=== PATIENT | male | born 1965 | race African-American/Black ===

== ENCOUNTER 2016-07-28 17:05 | Emergency (ER) | payer OTHER, BC ==
[2016-07-28 17:10] VITALS: BP 145/89; PULSE 64; TEMP 98; BMI 30.4
[2016-07-28 19:37] LABS: URINE APPEARANCE CLEAR; URINE BILIRUBIN NEGATIVE (NEGATIVE); URINE BLOOD NEGATIVE (NEGATIVE); URINE COLOR YELLOW; URINE GLUCOSE (UA) 2+ (NEGATIVE); URINE KETONE NEGATIVE (NEGATIVE); URINE LEUK ESTERASE NEGATIVE (NEGATIVE); URINE NITRITE NEGATIVE (NEGATIVE); URINE UROBILINOGEN NEGATIVE E.U./dl (0.2-1.0)
[2016-07-28 19:46] LABS: URINE PROTEIN 1+ (NEGATIVE)
[2016-07-28 20:05] LABS: URINE MUCUS RARE; URINE RBC 1 /hpf (0-3); URINE WBC 1 /hpf (3-5)
--- NOTE | 2016-07-28 20:22 | PDOC ---
History of Present Illness - General Chief Complaint: Injury Stated Complaint: FALL Time Seen by Provider: 07/28/16 18:02 History Source: Patient Exam Limitations: No Limitations - History of Present Illness Initial Comments: 07/28/16 20:16 pt fell down steps at work x 2 days ago hitting mid back, right elbow and nck on steps Occurred: reports: last week Severity: reports: mild Pain Location: reports: back, neck, upper extremity Method of Injury: Yes: direct blow, fall Associated Symptoms (Fall): denies symptoms Past History - Past Medical History Allergies/Adverse Reactions: Allergies Allergy/AdvReac Type Severity Reaction Status Date / Time No Known Allergies Allergy Verified 07/28/16 17:11 Home Medications: Ambulatory Orders Glipizide 20 mg PO DAILY 09/18/15 Insulin Glargine,Hum.rec.anlog [Lantus (10mL VIAL) -] 25 units SQ HS 09/18/15 Lisinopril 10 mg PO DAILY 09/18/15 Saxagliptin HCl [Onglyza] 2.5 mg PO DAILY 09/18/15 Ibuprofen 800 mg PO TID PRN #30 tablet 01/22/16 Ondansetron [Ondansetron Odt] 8 mg PO QID PRN #30 tab.rapdis 01/22/16 Oxycodone HCl/Acetaminophen [Percocet 5-325 mg Tablet] 1 tab PO Q4H PRN #10 tablet MDD 4 01/22/16 Diabetes: Yes HTN: Yes - Surgical History Appendectomy: Yes - Family Disease History Family Disease History: Diabetes: Father - Immunization History Td Vaccination: Yes - Psycho/Social/Smoking Cessation Hx Anxiety: No Suicidal Ideation: No Smoking Status: No Smoking History: Never smoked Years of Tobacco Use: 0 Have you smoked in the past 12 months: No Number of Cigarettes Smoked Daily: 0 Cigars Per Day: 0 Information on smoking cessation initiated: No Hx Alcohol Use: No Drug/Substance Use Hx: No Substance Use Type: None Hx Substance Use Treatment: No Review of Systems - Review of Systems Constitutional: No: Symptoms Reported, Chills, Fever, Malaise HEENTM: No: Symptoms Reported Respiratory: No: Symptoms reported Cardiac (ROS): No: Symptoms Reported Musculoskeletal: Yes: See HPI, Back Pain, Joint Pain, Joint Swelling, Neck Pain Integumentary: Yes: Symptoms Reported *Physical Exam - Vital Signs Last Vital Signs Temp Pulse Resp BP Pulse Ox 98 F 64 18 145/89 100 07/28/16 17:07 07/28/16 17:07 07/28/16 17:07 07/28/16 17:07 07/28/16 17:07 - Physical Exam General Appearance: Yes: Appropriately Dressed. No: Apparent Distress HEENT: negative: TMs Normal, Pharynx Normal Neck: negative: Tender, Rigid, Supple, Rigidity, Tender midline Respiratory/Chest: positive: Lungs Clear, Other (tender to area T12-L2; tender right elbow with abrasion, FROM elbow, wrist; neck) ED Treatment Course - ADDITIONAL ORDERS Additional order review: Laboratory Results 07/28/16 19:25 Urine Color Yellow Urine Appearance Clear Urine pH 5.0 D Ur Specific Alexander 1.031 Urine Protein 1+ H Urine Glucose (UA) 2+ H Urine Ketones Negative Urine Blood Negative Urine Nitrite Negative Urine Bilirubin Negative Urine Urobilinogen Negative Ur Leukocyte Esterase Negative Urine RBC 1 Urine WBC 1 Ur Epithelial Cells Rare Urine Mucus Rare - RADIOLOGY Radiology Studies Ordered: Category Date Time Status SPINE-LUMBAR ONLY [RAD] Stat Radiology 07/28/16 18:18 Completed Medical Decision Making - Medical Decision Making 07/28/16 20:20 doing better; no xray problem; told to watch for olecron bursitis symptoms *DC/Admit/Observation/Transfer Diagnosis at time of Disposition: MO-PROB-0 Elbow injury Qualifiers: Encounter type: initial encounter Laterality: right Qualified Code(s): S59.901A - Unspecified injury of right elbow, initial encounter Soft tissue injury of back Qualifiers: Encounter type: initial encounter Qualified Code(s): S39.92XA - Unspecified injury of lower back, initial encounter - Discharge Dispostion Disposition: HOME Condition at time of disposition: Stable Admit: No - Patient Instructions Additional Instructions: watch for addition swelling to elbow return for any new symptoms; see local MD this week - Post Discharge Activity Work/School Note: Back to Work
== END 2016-07-28 20:29 | disposition home or self-care (01) ==
LOC: JERFT 17:05
DX: S39.82XA Other specified injuries of lower back, initial encounter (principal); W10.8XXA Fall (on) (from) other stairs and steps, initial encounter; Y93.89 Activity, other specified; Y92.63 Factory as the place of occurrence of the external cause; Y99.0 Civilian activity done for income or pay
CPT/HCPCS: 72100-TC; 81003; 81015; 99281-25

== ENCOUNTER 2016-10-26 17:01 | Emergency (ER) | payer BC, OTHER ==
[2016-10-26 17:10] VITALS: BP 136/84; PULSE 75; TEMP 98; BMI 33.1
[2016-10-26] MEDS ORDERED: CLINDAMYCIN HCL 300 MG CAPSULE PO ONE (17:51)
[2016-10-26] MEDS ORDERED: OXYCODONE/APAP 5/325MG COMBO TABLET PO ONE (17:51)
[2016-10-26] MEDS ORDERED: OXYCODONE/APAP 5/325MG COMBO TABLET ONE (17:55)
--- NOTE | 2016-10-26 17:59 | PDOC ---
History of Present Illness - General Chief Complaint: Toothache Stated Complaint: TOOTHACHE Time Seen by Provider: 10/26/16 17:26 History Source: Patient Exam Limitations: No Limitations - History of Present Illness Initial Comments: 10/26/16 17:52 51 yr male with c/o one week pain to right tooth with swelling to right jaw. Pt has history of DM, dental infections in the past. Pt denies fever or chills. Taking motrin 800mg with no relief. Past History - Past Medical History Allergies/Adverse Reactions: Allergies Allergy/AdvReac Type Severity Reaction Status Date / Time No Known Allergies Allergy Verified 10/26/16 17:10 Home Medications: Ambulatory Orders Glipizide 20 mg PO DAILY 09/18/15 Insulin Glargine,Hum.rec.anlog [Lantus (10mL VIAL) -] 25 units SQ HS 09/18/15 Lisinopril 10 mg PO DAILY 09/18/15 Saxagliptin HCl [Onglyza] 2.5 mg PO DAILY 09/18/15 Ibuprofen 800 mg PO TID PRN #30 tablet 01/22/16 Ibuprofen [Motrin -] 600 mg PO QID #28 tablet 07/28/16 Clindamycin [Cleocin -] 300 mg PO TID #21 capsule 10/26/16 Insulin (LOG) Aspart [NovoLOG -] 0 units SQ BID 10/26/16 Oxycodone HCl/Acetaminophen [Percocet 5-325 mg Tablet] 1 - 2 tab PO Q8H PRN #12 tab MDD 8 tabs 10/26/16 Diabetes: Yes HTN: Yes - Surgical History Appendectomy: Yes - Family Disease History Family Disease History: Diabetes: Father - Immunization History Td Vaccination: Yes - Psycho/Social/Smoking Cessation Hx Anxiety: No Suicidal Ideation: No Smoking Status: No Smoking History: Never smoked Years of Tobacco Use: 0 Have you smoked in the past 12 months: No Number of Cigarettes Smoked Daily: 0 Cigars Per Day: 0 Hx Alcohol Use: No Drug/Substance Use Hx: No Substance Use Type: None Hx Substance Use Treatment: No Review of Systems - Review of Systems Able to Perform ROS?: Yes Is the patient limited Estonian proficient: No Constitutional: Yes: Symptoms Reported HEENTM: Yes: Symptoms Reported, Dental Problems *Physical Exam - Vital Signs Last Vital Signs Temp Pulse Resp BP Pulse Ox 98.0 F 75 20 136/84 97 10/26/16 17:07 10/26/16 17:07 10/26/16 17:07 10/26/16 17:07 10/26/16 17:07 - Physical Exam General Appearance: Yes: Nourished, Appropriately Dressed, Mild Distress (pain ) HEENT: positive: EOMI, NATI, Normal ENT Inspection, TMs Normal, Pharynx Normal, Other (pain swelling right mandible towrds the front of jaw, multiple rotten teeth, chipped cracked teeth , no definitive abscess however gum is swollen and red). 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 intact, Fully Oriented, Alert, Normal Mood/ Affect Medical Decision Making - Medical Decision Making 10/26/16 18:02 cc: toothache, dental pain for one week worse last night no fever, no trismus, pt is able to drink fluids no abd pain or nausea will place on jeremias and percocet for pain follow with dentist (pt states he has a dentist does not need a referral) *DC/Admit/Observation/Transfer Diagnosis at time of Disposition: Toothache, Dental infection, Dental caries - Prescriptions Prescriptions: Clindamycin [Cleocin -] 300 mg PO TID #21 capsule Oxycodone HCl/Acetaminophen [Percocet 5-325 mg Tablet] 1 - 2 tab PO Q8H PRN #12 tab MDD 8 tabs PRN Reason: Severe Pain - Patient Instructions Printed Discharge Instructions: DI for Tooth Abscess Additional Instructions: follow with your dentist for follow up this week take the antibiotics as prescribed percocet for sever pain, you can take with ibuprofen for better pain control drink pleanty of fluids take the clindamycin as directed gargle with warm salt water 4-5 times a day for 5 minutes
== END 2016-10-26 18:19 | disposition home or self-care (01) ==
LOC: JERFT 17:01
DX: K02.9 Dental caries, unspecified (principal); I10 Essential (primary) hypertension; E11.9 Type 2 diabetes mellitus without complications; Z79.4 Long term (current) use of insulin
CPT/HCPCS: 99281-25

== ENCOUNTER 2019-02-11 18:37 | Emergency (ER) | payer BC | END 2019-02-12 00:33 | disposition home or self-care (01) | LOC: JER 02-12 00:33 ==

== ENCOUNTER 2019-03-15 16:02 | Emergency (ER) | payer BC ==
[2019-03-15 16:17] VITALS: PULSE 63; BMI 33.4
--- NOTE | 2019-03-15 16:18 | PDOC ---
Rapid Medical Evaluation Time Seen by Provider: 03/15/19 16:13 Medical Evaluation: Allergies Allergy/AdvReac Type Severity Reaction Status Date / Time No Known Allergies Allergy Verified 02/11/19 18:49 03/15/19 16:14 The patient presents to the ER with numbness to the R leg since last night. Pt states he was here in the ER about a month ago with similar symptoms. He states that his symptoms did get better over the past month. He states he fell d/t the numbness yesterday. Also states he has wheezing. Exam: ambulatory. No new gross neuro deficits Orders: defer to provider Pt to proceed to the ER for further evaluation Discharge Disposition - Diagnosis Leg numbness - Referrals - Patient Instructions - Post Discharge Activity
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
[2019-03-15] MEDS ORDERED: SODIUM CHLORIDE 1,000 ML IV SCH (17:00)
[2019-03-15 17:33] LABS: BASO % 0.8 % (0-2.0); EOS % 0.9 % (0-4.5); HEMATOCRIT 37.9 % (35.4-49); HEMOGLOBIN 12.6 GM/dL (11.7-16.9); LYMPH % 32.5 % (8-40); MCH 28.8 pg (25.7-33.7); MCHC 33.2 g/dl (32.0-35.9); MEAN CELL VOLUME 86.7 fl (80-96); MEAN PLT VOLUME 7.8 fl (7.5-11.1); MONO % 5.9 % (3.8-10.2); NEUT % 59.9 % (42.8-82.8); PLATELET COUNT 185 K/MM3 (134-434); RBC 4.37 M/mm3 (4.00-5.60); RDW 14.1 % (11.9-15.9); WHITE BLOOD COUNT 7.7 K/mm3 (4.0-10.0)
--- NOTE | 2019-03-15 17:34 | PDOC ---
*Physical Exam - Vital Signs Last Vital Signs Temp Pulse Resp BP Pulse Ox 98 F 63 18 122/70 99 03/15/19 16:15 03/15/19 16:15 03/15/19 16:15 03/15/19 16:15 03/15/19 16:15 ED Treatment Course - LABORATORY CBC & Chemistry Diagram: 03/15/19 17:22 03/15/19 17:22 Medical Decision Making - Medical Decision Making 03/15/19 17:40 54 year old male presents with post coital leg weakness. VS unremarkable No focal neurologic deficit on PE. Will CT Head to r/o CVA/TIA; as per EMR patient has h/o B/L cerebellar infarcts. NIH Stroke Scale 9 *DC/Admit/Observation/Transfer Diagnosis at time of Disposition: Leg numbness - Referrals - Patient Instructions - Post Discharge Activity
[2019-03-15 17:51] LABS: ALBUMIN 3.8 g/dl (3.4-5.0); BILIRUBIN,TOTAL 0.6 mg/dL (0.2-1); BLOOD UREA NITROGEN 14.7 mg/dL (7-18); CALCIUM 9.2 mg/dL (8.5-10.1); CREATININE 0.9 mg/dL (0.55-1.3); MAGNESIUM 1.8 mg/dL (1.8-2.4); PHOSPHOROUS 3.5 mg/dL (2.5-4.9); POTASSIUM 4.3 mmol/L (3.5-5.1); TOT PROT 7.2 g/dl (6.4-8.2)
--- NOTE | 2019-03-15 18:14 | PDOC ---
NIH Stroke Scale - Initial Evaluation Level of consciousness: Alert Ask patient the month and their age: Answers both correctly Ask patient to open & close eyes; make fist and let go: Obeys both correctly Best gaze (horizontal eye movement): Normal Visual field testing: No visual field loss Facial paresis (Show teeth/raise eyebrows/close eyes tight): Normal symmetrical movement Motor Function: Left Arm: Normal Motor Function: Right Arm: Normal (extends arm 90 (or 45) degrees for 10 seconds without drift Motor Function: Left Leg: Normal (extends leg 30 degrees for 5 seconds without drift) Motor Function: Right Leg: Normal (extends leg 30 degrees for 5 seconds without drift) Limb Ataxia: No ataxia Sensory(Use pinprick test arms,legs,trunk,face/side to side): Normal Best language (Describe picture, name items, read sentences): No Aphasia Dysarthria (read several words): Normal articulation Extinction and Inattention: No abnormality - Total Score NIH Stroke Scale Score: 0
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
--- NOTE | 2019-03-15 19:41 | PDOC ---
*Physical Exam - Vital Signs Last Vital Signs Temp Pulse Resp BP Pulse Ox 98 F 63 18 122/70 99 03/15/19 16:15 03/15/19 16:15 03/15/19 16:15 03/15/19 16:15 03/15/19 16:15 - Physical Exam Comments: 03/15/19 20:26 Gen: Alert, NAD, comfortable-appearing. HEENT: PERRL, EOMI, MMM, NCAT. No conjunctival pallor. Sclera are non-icteric. CV: Regular rate and rhythm. No murmurs, rubs, or gallops. PULM: No resp distress. CTAB, no wheezes, rales, or rhonchi. ABD: soft, NT/ND, no rebound tenderness or guarding, no CVA tenderness. BACK: No TTP of c/t/l-spine. No step-offs or deformities. MSK: No bony deformities. 2+ pulses in all extremities. NEURO: AAOx3. PERRL. No gross CN deficits. Strength and sensation grossly intact throughout. Normal gait. EXTREMITIES: No cyanosis. No clubbing. No edema. No calf tenderness. PSYCH: Normal mood and thought pattern. SKIN: Warm and dry. Normal capillary refill. No rashes. No jaundice. <Emma Hughes - Last Filed: 03/16/19 22:35> - Vital Signs Last Vital Signs Temp Pulse Resp BP Pulse Ox 98.4 F 63 18 141/67 99 03/15/19 21:15 03/15/19 21:15 03/15/19 21:15 03/15/19 21:15 03/15/19 21:15 <Jonas Araujo - Last Filed: 03/16/19 22:45> Heart Score/ECG Review - ECG Impressions Comment:: 03/16/19 22:34 NSR rate of 63 bpm, LAD, no st elevation or depression, t waves upright, pr: 252ms (prolonged), QRS: 92ms, QTc: 450ms <Emma Hughes - Last Filed: 03/16/19 22:35> ED Treatment Course - LABORATORY CBC & Chemistry Diagram: 03/15/19 17:22 03/15/19 17:22 - ADDITIONAL ORDERS Additional order review: Laboratory Results 03/15/19 17:22 Sodium 140 Potassium 4.3 Chloride 105 Carbon Dioxide 32 Anion Gap 4 L BUN 14.7 Creatinine 0.9 Est GFR (CKD-EPI)AfAm 110.27 Est GFR (CKD-EPI)NonAf 95.14 Random Glucose 211 H Calcium 9.2 Phosphorus 3.5 Magnesium 1.8 Total Bilirubin 0.6 AST 22 ALT 27 Alkaline Phosphatase 54 Total Protein 7.2 Albumin 3.8 03/15/19 17:22 RBC 4.37 MCV 86.7 MCHC 33.2 RDW 14.1 MPV 7.8 Neutrophils % 59.9 D Lymphocytes % 32.5 D Monocytes % 5.9 Eosinophils % 0.9 Basophils % 0.8 <Emma Hughes - Last Filed: 03/16/19 22:35> - LABORATORY CBC & Chemistry Diagram: 03/15/19 17:22 03/15/19 17:22 - ADDITIONAL ORDERS Additional order review: 03/15/19 17:22 RBC 4.37 MCV 86.7 MCHC 33.2 RDW 14.1 MPV 7.8 Neutrophils % 59.9 D Lymphocytes % 32.5 D Monocytes % 5.9 Eosinophils % 0.9 Basophils % 0.8 - Medications Given in the ED: ED Medications Discontinued Medications Generic Name Dose Route Start Last Admin Trade Name Freq PRN Reason Stop Dose Admin Sodium Chloride 1,000 mls @ 0 mls/hr 03/15/19 17:00 03/15/19 17:28 Normal Saline - IV Not Given ASDIR TATY Wide Open <Jonas Araujo - Last Filed: 03/16/19 22:45> Medical Decision Making - Medical Decision Making 03/15/19 19:41 Sign out received from Dr Ash. Pt seen and assessed at bedside. 54yo hx HTN, HLD, DM presents with post coital R leg weakness, resolved. NIH Stroke Scale 9. Hemodynamically stable, neurologically intact. EKG - NSR rate of 63 bpm, LAD, no st elevation or depression, t waves upright, pr: 252ms (prolonged), QRS: 92ms, QTc: 450ms No concerning findings on labs. Pending urine. CTH pending (to r/o CVA/TIA). As per EMR patient has h/o B/L cerebellar infarcts. Anticipate d/c May need to follow up with Neuro/PMD 03/15/19 22:43 CTH: no acute findings UA: negative Will dc home. Return precautions given. Pt understands all dc instructions and all questions were answered. <Emma Hughes - Last Filed: 03/16/19 22:35> *DC/Admit/Observation/Transfer - Discharge Dispostion Decision to Admit order: No <Emma Hughes - Last Filed: 03/16/19 22:35> - Attestations Physician Attestion: 03/16/19 22:45 I have reviewed the plan as documented and agree with current plan as documented. Electronically co-signed by Jonas Araujo MD <Jonas Araujo - Last Filed: 03/16/19 22:45> Diagnosis at time of Disposition: Leg numbness - Discharge Dispostion Disposition: HOME Condition at time of disposition: Stable - Referrals Referrals: [facility] [place] [facility] [place] [Provider Group] - Patient Instructions Printed Discharge Instructions: DI for Numbness/tingling Additional Instructions: You have been seen in the Emergency Department for your leg weakness/numbness. Your CT scan of your head and labs show no signs concerning for an emergent condition. There are many causes of your symptoms but yours is most likely a radiculopathy (pinched nerve). Follow-up with your primary care doctor within 1 week. Return to the ED immediately if you experience weakness of the leg, worsening numbness, difficulty speaking or swallowing, difficulty walking, chest pain, difficulty breathing, dizziness, or any other new or worsening symptom.
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
[2019-03-15 21:18] VITALS: BP 141/67; TEMP 98.4
[2019-03-15 21:34] LABS: URINE APPEARANCE CLEAR; URINE BILIRUBIN NEGATIVE (NEGATIVE); URINE COLOR YELLOW; URINE GLUCOSE (UA) NEGATIVE (NEGATIVE); URINE KETONE NEGATIVE (NEGATIVE); URINE LEUK ESTERASE NEGATIVE (NEGATIVE); URINE NITRITE NEGATIVE (NEGATIVE); URINE PROTEIN NEGATIVE (NEGATIVE); URINE UROBILINOGEN 0.2 mg/dL (0.2-1.0)
--- NOTE | 2019-03-16 10:55 | EKG ---
Test Reason : Blood Pressure : / mmHG Vent. Rate : 063 BPM Atrial Rate : 063 BPM P-R Int : 252 ms QRS Dur : 092 ms QT Int : 440 ms P-R-T Axes : 048 -39 046 degrees QTc Int : 450 ms SINUS RHYTHM WITH 1ST DEGREE A-V BLOCK POSSIBLE LEFT ATRIAL ENLARGEMENT LEFT AXIS DEVIATION INCOMPLETE RIGHT BUNDLE BRANCH BLOCK ABNORMAL ECG WHEN COMPARED WITH ECG OF 17-APR-2013 13:30, SIGNIFICANT CHANGES HAVE OCCURRED Confirmed by SOLO CARRASCO, JULIÁN ([id number]) on 03/16/2019 10:54:46 AM Referred By: Confirmed By:JULIÁN BANDA MD
== END 2019-03-15 21:18 | disposition home or self-care (01) ==
LOC: JER 16:02
DX: R20.0 Anesthesia of skin (principal); I10 Essential (primary) hypertension; E78.5 Hyperlipidemia, unspecified; E11.9 Type 2 diabetes mellitus without complications; Z79.4 Long term (current) use of insulin; R06.2 Wheezing
CPT/HCPCS: 36415; 70450-TC; 71045-TC-FY; 80053; 81003; 83735; 84100; 85025; 93005; 93010; 99283-25